=== PATIENT | male | born 1995 ===

== ENCOUNTER 2023-01-05 08:13 | Outpatient (CLI) | payer OTHER, SELFPAY ==
--- NOTE | 2023-01-11 11:15 | P.PCNPFT_ITS ---
PFT Procedure Performed PFT Procedure Performed Plethysmography (Lung Vol) Diffusing Cap (DLCO) Flow Vol Loop Spirometry w/o Bronchodil PFT Interpretation DOS: 01.05.2023 REQUESTING: SERENITY Leonard REASON FOR TESTING: Cough PULMONARY FUNCTION TESTS Results are reliable and reproducible. HE had coughing during the test however completed the maneuvers with Grade A reliability. No bronchodilator was given as a methacholine followed this PFT. Spirometry: Pre-bronchodilator FEV1 is 2.92 L, 68% mildly decreased. Pre- bronchodilator FVC is 81%, 4.32 L, normal. FEV1/FVC is 68%. No bronchodilator was given. Lung volumes: Total lung capacity is 5.52 L, 77%, mild restriction. Residual volume is 1.20 L, 66%. RV/TLC is 22%, normal range. Airway resistance is 3.35uoZ11/L/sec, 282% predicted. Diffusion: DLCO is 38.5, 119%, normal. DLCO/VA is 6.26, 136%, not decreased. Flow volume loop: Normal. IMPRESSION: This study shows normal spirometry, borderline restrictive pattern with total lung capacity 77% predicted, normal diffusion. No bronchodilator was given due to the methacholine challenge to follow this test. No prior studies for comparison. Lorie Patel MD
--- NOTE | 2023-01-11 11:23 | WPDMETH ---
Methacholine Procedure Perform Procedure Performed Methacholine Challenge Methacholine Challenge Methacholine Challenge: DOS: 01/05/2023 REQUESTING: SERENITY Leonard REASON FOR TESTING: Cough METHACHOLINE CHALLENGE This test was conducted per ATS guidelines. A PFT same day showed normal spirometry. The patient was exposed to sequentially increasing doses of methacholine in the usual manner. Level 0 - saline Level 1 - 1.81 mcg Level 2 - 7.26 mcg Level 3 - 29.03 mcg Level 4 - 116.10 mcg Level 5 - 464.40 mcg The test was stopped after the 5th and final dose with a 21% drop in the FEV1. A decrease of 20% in the FEV1 is a positive result, and the testing is terminated. Flows returned to normal after bronchodilator was administered. IMPRESSION: This is a positive methacholine challenge with the PD20 464.40 mcg on the fifth and final level. The best use for a methacholine challenge is to rule out asthma. Sometimes a positive response on the highest dose can be seen in conditions other than asthma. Clinical correlation is advised Lorie Patel MD
== END 2023-01-05 08:14 | disposition home or self-care (01) ==
LOC: CHSCARD 08:20
PROVIDERS: PCP Family Medicine; Visit Provider Nurse Practitioner Family
DX: R05.9 Cough, unspecified (principal)
CPT/HCPCS: 94010; 94060; 94070; 94726; 94729; J7674